=== PATIENT | female | born 1975 | race African-American/Black ===

== ENCOUNTER 2018-11-15 14:09 | Inpatient (IN) ==
[2018-11-15] MEDS ORDERED: TYLENOL PO PRN (15:39)
[2018-11-15] MEDS ORDERED: ZOFRAN IV PRN (15:39)
[2018-11-15] MEDS ORDERED: NS 1,000 ML IV ONE ×2 (15:41→17:08)
[2018-11-15] MEDS ORDERED: VANCOMYCIN IV PER PHARMACY MISC SCH (15:45)
[2018-11-15] MEDS ORDERED: SALINE LOCK IV FLUID XX ONE (15:45)
[2018-11-15] MEDS: ZOSYN 3.375 GM in NS 50 ML IV SCH ×2 (16:38→22:25)
[2018-11-15 16:47] LABS: BASO# 0.03 X1000 (0.0-0.2); BASO% 0.1 % (0.0-0.8); EOS# 0.05 X1000 (0.0-0.7); EOS% 0.2 % (0.0-10.0); HEMATOCRIT 31.5 % (37.0-47.0); HEMOGLOBIN 10.3 g/dL (12.0-16.0); IMM GRAN# 0.18 X1000 (0.0-0.04); IMM GRAN% 0.8 % (0.0-0.5); LYMPH# 2.85 X1000 (1.2-3.4); LYMPH% 13.1 % (20.5-51.1); MCH 29.2 PG (27-31); MCHC 32.7 g/dL (33-37); MCV 89.2 FL (81-99); MONO# 1.75 X1000 (0.11-0.59); MPV 11.2 FL (7.4-10.4); NEUT# 16.91 X1000 (1.4-6.5); NEUT% 77.8 % (42.2-75.2); PLT 44 X1000 (130-400); RBC 3.53 XMIL (4.2-5.4); RDW 12.7 % (11.5-14.5); WBC 21.77 X1000 (4.8-10.8)
[2018-11-15 16:49] LABS: LYMPHS 15 % (21-51); MONO 7 % (1-9); SEGS 78 % (42-75)
[2018-11-15 17:00] LABS: AGAP 18; ALBUMIN 3.8 g/dL (3.5-5.0); ALKALINE PHOSPHATASE 85 U/L (32-104); BUN 10 mg/dL (8-22); CALCIUM 8.7 mg/dL (8.8-10.2); CHLORIDE 97 mmol/L (98-107); COSMO 274; CREATININE 0.6 mg/dL (0.5-0.9); ESTIMATED GFR > 60; GLUCOSE 124 mg/dL (70-104); GOT 7 U/L (10-30); GPT 6 U/L (10-36); POTASSIUM 3.6 mmol/L (3.5-5.1); SODIUM 137 mmol/L (136-145); TCO2 22 mmol/L (25-35)
[2018-11-15] MEDS ORDERED: VENTOLIN HFA INH PRN (17:09)
[2018-11-15] MEDS ORDERED: MIRALAX PO PRN (17:09)
[2018-11-15] MEDS ORDERED: VANCOMYCIN 1,750 MG in NS 250 ML IV ONE (18:00)
--- NOTE | 2018-11-15 19:08 | Diag Imaging Result Doc PS360 ---
EXAM: CT ABD/PELVIS W/PO AND IV CON 11/15/2018 HISTORY: perirectal abscess TECHNIQUE: This exam was performed using automated exposure control, adjustment of mA or kV according to patient size, and/or use of iterative reconstruction technique. COMMENT: There are no previous studies available for comparison. There is cardiomegaly. There is no evidence of acute disease in the visualized portion of the chest otherwise. The liver is slightly hypodense suggesting fatty change. There is a small hiatal hernia. The spleen and adrenal glands are within normal limits. The pancreas is unremarkable. There is some stool in the colon. The small bowel is not distended. The aorta is not distended and there is no evidence of significant adenopathy. There is no evidence of hydronephrosis. There is a cyst in the posterior lateral inferior left renal cortex measuring 15 mm in diameter. There is a fat-containing umbilical hernia. Pelvis: There is a fairly large amount of stool present in the distal descending colon and cecum. The appendix is normal in appearance. The urinary bladder is not distended. There is no evidence of free fluid in the pelvis. There is an apparent nabothian cyst. There is soft tissue edema in the subcutaneous fat to the left of the gluteal fold extending slightly into the left ischial rectal fossa. There is a somewhat poorly defined fluid collection present best seen on image 143 and measuring 3.4 cm in greatest dimension. This may be a perirectal abscess. There is an old fracture of the inferior left pubic ramus and also of the superior pubic ramus. There is vacuum joint phenomenon in the left sacroiliac joint. IMPRESSION: Subcutaneous cellulitis and abscess on the left aspect of the gluteal fold and perirectal region. Other nonacute changes as described above. Electronically signed by Pete Quintanilla 11/15/2018 7:06 PM
[2018-11-15] MEDS: LOPRESSOR PO SCH (20:06)
[2018-11-15] MEDS: TOPAMAX PO SCH (20:06)
[2018-11-15] MEDS: TRILEPTAL PO SCH (20:06)
[2018-11-15] MEDS: PATIENT'S OWN MED PO SCH ×2 (20:14)
--- NOTE | 2018-11-15 20:16 | HISTORY AND PHYSICAL ---
CHIEF COMPLAINT: Gluteal pain, buttock pain. HISTORY OF PRESENT ILLNESS: This is a 43-year-old female. She is a [facility] patient with schizophrenia, moderate intellectual disability, COPD, GERD, hypertension. She was seen I think [facility] a couple days ago for possible developing abscess cellulitis in her gluteal area on the left side. I think they attempted to drain in the office. She was placed on antibiotics, did not improve, came back in today, was re-evaluated by nurse practitioner. She felt the area was worse and interestingly, there is a comment here that the "boils" did not appear until she started her Depo shot which I am assuming is her Depo-Provera shot. In any case she was admitted for cellulitis, possibly developing abscess. She was given Depo-Provera prior to transfer. PAST MEDICAL HISTORY: 1. Again the COPD. 2. Schizophrenia. 3. Moderate intellectual disabilities. 4. GERD. 5. Hypertension. 6. Hypothyroid. 7. Type 2 diabetes noninsulin dependent. PAST SURGICAL HISTORY: She admits to only orthopedic surgery on her hands. No other major surgeries. SOCIAL HISTORY: No tobacco or ethanol. She is a [facility] patient. ALLERGIES: To sulfa. MEDICATIONS: Her medication list is being compiled. Claritin 10 daily, Clozaril 50 b.i.d., 150 at bedtime, 25 at 15:00, Cogentin 0.5 t.i.d., Atrovent dial arrest 500 daily, medroxyprogesterone (the Depo-Provera) q.3 months, ferrous sulfate 325 daily, Lopressor 12.5 b.i.d., magnesium oxide 400 daily, MiraLAX 17 daily, ProAir daily, Synthroid 50 daily, topiramate 25 b.i.d., Trileptal 300 b.i.d., vitamin B12 1000 daily, vitamin D3 2000 daily, dapagliflozin/metformin 5/1 g b.i.d., sertraline 100 daily, doxycycline 100 p.o. b.i.d. REVIEW OF SYSTEMS: Otherwise negative times a 10 point review of systems. PHYSICAL EXAM: VITAL SIGNS: Her temperature is currently 99.9 degrees, heart rate 116, respiratory 18, blood pressure 117/64, 98% on room air. GENERAL: A well-developed female. She is in mild distress. HEAD: Examination was normocephalic, atraumatic. EYES: Pupils are equal, round, reactive to light. Extraocular movements were intact. EAR, NOSE AND THROAT EXAM: She had moist mucous membranes. NECK EXAM: Was supple. CARDIOVASCULAR: Was regular rate and rhythm. PULMONARY: Bilateral breath sounds. Clear to auscultation. GI: Was soft, nontender, nondistended. Bowel sounds are positive. ON HER GLUTEAL EXAM: She had a good 3 to 4 cm sized lesion that was fluctuant kind had a clear vesicular surface, but underneath was fluctuance, I could not appreciate any funmi pus. I could not express pus from any particular area and she had some macerated tissue right beneath the surface of the blister area. NEURO: Was nonfocal. She was able to actually answer most of her questions appropriately. Had some decent insight. PLAN/ASSESSMENT: This is a 43-year-old female, diabetic, intellectually impaired, coming in for evaluation for a possible intergluteal abscess or gluteal abscess and cellulitis. 1. Gluteal abscess cellulitis. We have ordered antibiotics empirically. Blood cultures. I have gone ahead and done a wound culture on her buttocks area, and we will get a CT scan to get a better idea of the extent of it. I do think this will most likely need incision and drainage. Dr. Rush has been consulted to evaluate the patient for incision and drainage. Her white count with suggests that she does have degree of even early sepsis per se because she has high white count and high heart rate. No temperature at this point, but in any case, patient will be admitted for treatment. 2. Diabetes. Continue her regular medications and follow. Follow blood sugars. Check A1c. Check sliding scale insulin and monitor. 3. Hypertension. Continue her regular medications. She does appear a bit clinically dehydrated, so we will continue that as tolerated and follow. DISPOSITION: Continue to monitor closely. Pending her clinical status, we may have to end up transferring her to surgical facility. cc: MD Abi Hopkins
[2018-11-15] MEDS: SYMBICORT 160/4.5 MICROGM INHALER INH SCH (20:23)
[2018-11-15] MEDS: DUONEB (A & A) INH SCH (20:23)
[2018-11-15 21:07] LABS: BILIRUBIN URINE NEGATIVE (NEGATIVE); BLOOD URINE 4+ (NEGATIVE); KETONE URINE 3+(Large) mg/dL (NEGATIVE); LEUKOCYTES URINE 2+ (NEGATIVE); NITRITE URINE NEGATIVE (NEGATIVE); PH URINE 6.5; PROTEIN URINE TRACE mg/dL (NEGATIVE); UROBILINOGEN URINE NORMAL
[2018-11-15 21:08] LABS: CLARITY SL. CLOUDY (CLEAR); COLOR YELLOW
--- NOTE | 2018-11-15 21:25 | GENERAL SURGERY CONSULTATION ---
DATE: 11/15/2018 REASON FOR CONSULTATION: Buttock abscess. HISTORY OF PRESENT ILLNESS: This is a 43-year-old female who has had swelling and pain over her right buttock for about a week. She denies nausea, vomiting, fever, or chills. She lives in a [facility]ci. It is worse to direct pressure. PAST MEDICAL HISTORY: 1. Type 2 diabetes. 2. Hypothyroidism. 3. Gastroesophageal reflux disease. 4. COPD. 5. Schizophrenia. PAST SURGICAL HISTORY: Unknown. CURRENT MEDICATIONS: 1. DuoNeb. 2. Cogentin. 3. Symbicort. 4. Vitamin D. 5. Vitamin B12. 6. Ferrous sulfate. 7. Humulin. 8. Synthroid. 9. Claritin. 10. Lopressor. 11. Vancomycin. 12. Zofran. 13. Trileptal. 14. Klonopin. 15. Zosyn. 16. MiraLax. 17. Daliresp. 18. Zoloft. 19. Topamax. ALLERGIES: Sulfa. SOCIAL HISTORY: No tobacco, alcohol, or illicit drug use. She lives in a fci. REVIEW OF SYSTEMS: 10 systems were reviewed and negative except as noted above. PHYSICAL EXAMINATION: Vital Signs: Temperature 99.9 degrees, pulse 115, blood pressure 111/64. General: Well developed female in no distress. She looks her stated age. CV: Regular rate and rhythm. Respiratory: Bilateral breath sounds. No work of breathing. Skin: There is a fluctuant, tender draining area of the right buttock skin near the gluteal cleft. IMAGING: Abdominal and pelvis CT scan shows perirectal abscess. ASSESSMENT AND PLAN: A 43-year-old female with perirectal abscess. We will perform incision and drainage at the bedside. We are seeking consent from her [facility]. cc: Paxton Rush MD
--- NOTE | 2018-11-15 21:26 | Diag Imaging Result Doc PS360 ---
EXAM: CHEST-1 VIEW 11/15/2018 HISTORY: SEPSIS PROTOCOL TECHNIQUE: AP portable at 2118 COMMENT: There is cardiomegaly. The inspiration is suboptimal. Compared to 04/27/2017 there has been no significant change. IMPRESSION: Stable chest. Electronically signed by Pete Quintanilla 11/15/2018 9:23 PM
[2018-11-15 21:30] LABS: URINE SOURCE CLEAN CATCH
[2018-11-15 21:33] LABS: URINE EPITHELIAL CELLS <10 /HPF (<10); URINE WBC 20-40 /HPF (<10)
[2018-11-15 21:34] LABS: URINE BACTERIA 1+ /HFP; URINE CAST NONE SEEN /LPF; URINE CRYSTAL NONE SEEN /HPF; URINE SMALL ROUND CELLS TRANSITIONAL PRESENT; URINE YEAST NONE SEEN /HPF
[2018-11-15 21:53] LABS: INR 1.06; PROTIME 14.3 Seconds (11.0-16.0)
[2018-11-15 21:54] LABS: PTT 31.4 Seconds (22.3-41.8)
--- NOTE | 2018-11-15 22:05 | OPERATIVE NOTE ---
PROCEDURE DATE: 11/15/2018 PREOPERATIVE DIAGNOSIS: Perirectal abscess. POSTOPERATIVE DIAGNOSIS: Perirectal abscess. PROCEDURE: Incision and drainage of perirectal abscess. SURGEON: Paxton Rush MD ANESTHESIA: Local anesthetic. ESTIMATED BLOOD LOSS: Scant. COMPLICATIONS: None apparent. FINDINGS: Purulent fluid. TECHNIQUE: She was facing her left side on her hospital bed. The skin was prepped with Betadine. An 11 blade was used to incise the fluctuant area of the left perirectal abscess. The hemostat was inserted and used to break up loculations. Purulent fluid was drained and cultured. The wound was packed with iodoform gauze and covered with 4 x 4 gauze and tape. She tolerated this well. There were no apparent complications. cc: Paxton Rush MD
[2018-11-15] MEDS: NS 1,000 ML IV SCH (22:25)
[2018-11-15] MEDS: HUMULIN R (PARKWAY) SUBQ SCH (22:32)
[2018-11-16 02:48] LABS: BASO# 0.03 X1000 (0.0-0.2); BASO% 0.2 % (0.0-0.8); EOS# 0.13 X1000 (0.0-0.7); EOS% 0.7 % (0.0-10.0); HEMATOCRIT 29.2 % (37.0-47.0); HEMOGLOBIN 9.4 g/dL (12.0-16.0); IMM GRAN# 0.14 X1000 (0.0-0.04); IMM GRAN% 0.7 % (0.0-0.5); LYMPH% 15.2 % (20.5-51.1); MCH 28.7 PG (27-31); MCHC 32.2 g/dL (33-37); MONO# 1.13 X1000 (0.11-0.59); MONO% 5.9 % (1.7-9.3); MPV 11.7 FL (7.4-10.4); NEUT# 14.81 X1000 (1.4-6.5); NEUT% 77.3 % (42.2-75.2); PLT 89 X1000 (130-400); RBC 3.28 XMIL (4.2-5.4); RDW 12.6 % (11.5-14.5); WBC 19.14 X1000 (4.8-10.8)
[2018-11-16 03:18] LABS: AGAP 11; BUN 9 mg/dL (8-22); CALCIUM 8.4 mg/dL (8.8-10.2); CHLORIDE 102 mmol/L (98-107); COSMO 281; CREATININE 0.5 mg/dL (0.5-0.9); ESTIMATED GFR > 60; GLUCOSE 178 mg/dL (70-104); POTASSIUM 3.2 mmol/L (3.5-5.1); SODIUM 139 mmol/L (136-145); TCO2 26 mmol/L (25-35)
[2018-11-16] MEDS: DUONEB (A & A) INH SCH ×4 (03:40→20:13)
[2018-11-16] MEDS: ZOSYN 3.375 GM in NS 50 ML IV SCH ×3 (04:03→18:09)
[2018-11-16] MEDS: VANCOMYCIN 1,500 MG in NS 250 ML IV SCH ×2 (05:50→20:19)
[2018-11-16] MEDS: SYNTHROID PO SCH ×2 (05:55→09:45)
[2018-11-16] MEDS: HUMULIN R (PARKWAY) SUBQ SCH ×4 (06:44→20:20)
[2018-11-16] MEDS: SYMBICORT 160/4.5 MICROGM INHALER INH SCH ×2 (08:37→20:13)
[2018-11-16] MEDS: TRILEPTAL PO SCH ×2 (09:43→20:20)
[2018-11-16] MEDS: TOPAMAX PO SCH ×2 (09:43→20:20)
[2018-11-16] MEDS: VITAMIN D PO SCH (09:44)
[2018-11-16] MEDS: COGENTIN PO SCH ×3 (09:44→17:14)
[2018-11-16] MEDS: CLARITIN PO SCH (09:44)
[2018-11-16] MEDS: DALIRESP PO SCH (09:44)
[2018-11-16] MEDS: FERROUS SULFATE PO SCH (09:44)
[2018-11-16] MEDS: VITAMIN B-12 PO SCH (09:44)
[2018-11-16] MEDS: LOPRESSOR PO SCH ×2 (09:44→20:20)
[2018-11-16] MEDS: ZOLOFT PO SCH (09:44)
[2018-11-16] MEDS: NS 1,000 ML IV SCH ×2 (09:45→12:16)
[2018-11-16] MEDS: PATIENT'S OWN MED PO SCH ×5 (09:46→21:20)
[2018-11-16] MEDS ORDERED: KLOR-CON PO ONE (11:54)
--- NOTE | 2018-11-16 15:37 | PROGRESS NOTE ---
DATE: 11/16/2018 SUBJECTIVE: Patient has no major complaints. OBJECTIVE: Vital signs: Blood pressure 124/66, heart rate of 96, respiratory rate of 16, temperature 98.1 degrees, 98% on room air. Cardiovascular: Regular rate and rhythm. Pulmonary: Bilateral breath sounds. Clear to auscultation. GI: Soft, nontender, nondistended. Bowel sounds are positive. LABORATORY DATA: White count is down to 19, hemoglobin and hematocrit 9 and 29, platelets of 89,000. Potassium is 3.2, glucose is 299. PROBLEM LIST: 1. Gluteal abscess status post incision and drainage. We will continue treatment. Dr. Rush did a bedside I D yesterday and I appreciate his input. We will continue to monitor. She is on vancomycin and Zosyn for the time being until we can get cultures back, if we get cultures back. So far everything is negative. Hopefully just with wound care and antibiotics it will take care of this problem. 2. Type 2 diabetes. Aware of diagnosis. We will continue to monitor. Her sugars have been under good control or fairly good control. She is on dapagliflozin and metformin. 3. Hypertension. That appears to be stable. Continue to follow. 4. Hypothyroidism. Check her TSH and monitor. 5. Thrombocytopenia. I did not appreciate this yesterday because I did not have all of her labs when initially she was seen, but she does have a fairly significant thrombocytopenia. It is better today. She is on several psychiatric medications, some of which certainly could contribute to that, so we will keep an eye on that. May need to get a Hematology opinion and follow. cc: Molina Uribe MD
[2018-11-17] MEDS: ZOSYN 3.375 GM in NS 50 ML IV SCH ×5 (01:39→18:48)
[2018-11-17] MEDS: DUONEB (A & A) INH SCH ×4 (03:01→20:23)
[2018-11-17] MEDS: SYNTHROID PO SCH ×2 (05:54→06:15)
[2018-11-17] MEDS: HUMULIN R (PARKWAY) SUBQ SCH ×4 (06:26→21:56)
[2018-11-17 06:46] LABS: AGAP 9; BUN 8 mg/dL (8-22); CALCIUM 8.1 mg/dL (8.8-10.2); CHLORIDE 105 mmol/L (98-107); COSMO 284; CREATININE 0.5 mg/dL (0.5-0.9); ESTIMATED GFR > 60; GLUCOSE 272 mg/dL (70-104); POTASSIUM 4.1 mmol/L (3.5-5.1); SODIUM 138 mmol/L (136-145); TCO2 24 mmol/L (25-35)
[2018-11-17 07:03] LABS: HEMATOCRIT 29.8 % (37.0-47.0); HEMOGLOBIN 9.4 g/dL (12.0-16.0); MCH 28.4 PG (27-31); MCHC 32.3 g/dL (33-37); MCV 90.2 FL (81-99); PLT 87 X1000 (130-400); RBC 3.31 XMIL (4.2-5.4); RDW 12.8 % (11.5-14.5); WBC 10.54 X1000 (4.8-10.8)
[2018-11-17 07:06] LABS: LYMPH% 20.9 % (20.5-51.1); MONO% 6.5 % (1.7-9.3); MPV 11.4 FL (7.4-10.4); NEUT% 68.3 % (42.2-75.2)
[2018-11-17 07:07] LABS: BASO% 0.3 % (0.0-0.8); LYMPH# 2.19 X1000 (1.2-3.4); MONO# 0.68 X1000 (0.11-0.59); NEUT# 7.16 X1000 (1.4-6.5)
[2018-11-17 07:08] LABS: BASO# 0.03 X1000 (0.0-0.2); EOS# 0.21 X1000 (0.0-0.7); IMM GRAN# 0.21 X1000 (0.0-0.04)
[2018-11-17] MEDS: VANCOMYCIN 1,500 MG in NS 250 ML IV SCH (08:14)
[2018-11-17] MEDS: ZOLOFT PO SCH (08:15)
[2018-11-17] MEDS: VITAMIN B-12 PO SCH (08:15)
[2018-11-17] MEDS: COGENTIN PO SCH ×3 (08:15→16:57)
[2018-11-17] MEDS: TOPAMAX PO SCH ×2 (08:15→21:55)
[2018-11-17] MEDS: FERROUS SULFATE PO SCH (08:16)
[2018-11-17] MEDS: DALIRESP PO SCH (08:16)
[2018-11-17] MEDS: TRILEPTAL PO SCH ×2 (08:16→21:55)
[2018-11-17] MEDS: LOPRESSOR PO SCH ×2 (08:16→21:55)
[2018-11-17] MEDS: CLARITIN PO SCH (08:16)
[2018-11-17] MEDS: VITAMIN D PO SCH (08:16)
[2018-11-17] MEDS: PATIENT'S OWN MED PO SCH ×4 (08:44→21:56)
[2018-11-17] MEDS: SYMBICORT 160/4.5 MICROGM INHALER INH SCH ×2 (10:21→20:22)
--- NOTE | 2018-11-17 19:57 | PROGRESS NOTE ---
DATE: 11/17/2018 SUBJECTIVE: Patient has no major complaints. OBJECTIVE: Blood pressure 108/54, heart rate 68, respiratory rate 18, temperature 98.2, 97% on room air.Cardiovascular: Regular rate and rhythm. Pulmonary: Clear to auscultation. Gastrointestinal: Soft, nontender, nondistended. Bowel sounds are positive. Extremity: No clubbing or cyanosis. No peripheral edema. Neurological: Nonfocal. LABORATORY: White count is 10, hemoglobin and hematocrit 9 and 29, platelets 87,000. Sugar 296, which is still not very good control. PROBLEM LIST: 1. Gluteal abscess growing out Enterococcus preliminarily and a gram-negative jf. Dr. Rush did I D. We will continue wound care. Apparently, we are doing packing. Discharge and follow. 2. Type 2 diabetes. She is on several medications, but she is not under control. I am going to have to adjust her medicines a bit. She may even benefit from insulin. 3. Hypertension is stable currently. 4. Thrombocytopenia is currently active. I would encourage followup with her psychiatrist about adjusting her medications, but her platelet count has stabilized. There is no gross evidence of bleeding. DISPOSITION: I anticipate discharge hopefully tomorrow. Will transition to oral antibiotics once we can get finalized cultures. I have ordered Zyvox because she has Enterococcus and Levaquin currently for the gram-negative. cc: Molina Uribe MD
[2018-11-17] MEDS: VANCOMYCIN 1,200 MG in NS 250 ML IV SCH (21:54)
[2018-11-18] MEDS: ZOSYN 3.375 GM in NS 50 ML IV SCH ×2 (00:15→06:08)
[2018-11-18] MEDS: DUONEB (A & A) INH SCH ×2 (03:13→08:13)
[2018-11-18] MEDS: SYNTHROID PO SCH (06:08)
[2018-11-18] MEDS: HUMULIN R (PARKWAY) SUBQ SCH ×2 (06:09→12:42)
[2018-11-18 07:20] LABS: AGAP 8; BUN 10 mg/dL (8-22); CALCIUM 8.4 mg/dL (8.8-10.2); CHLORIDE 105 mmol/L (98-107); COSMO 287; CREATININE 0.5 mg/dL (0.5-0.9); ESTIMATED GFR > 60; GLUCOSE 321 mg/dL (70-104); POTASSIUM 4.3 mmol/L (3.5-5.1); SODIUM 138 mmol/L (136-145); TCO2 25 mmol/L (25-35)
[2018-11-18 07:29] VITALS: BP 116/60
[2018-11-18] MEDS: SYMBICORT 160/4.5 MICROGM INHALER INH SCH (08:13)
[2018-11-18 08:27] LABS: BASO# 0.04 X1000 (0.0-0.2); BASO% 0.5 % (0.0-0.8); EOS# 0.24 X1000 (0.0-0.7); EOS% 2.7 % (0.0-10.0); HEMATOCRIT 34.5 % (37.0-47.0); HEMOGLOBIN 10.6 g/dL (12.0-16.0); IMM GRAN# 0.18 X1000 (0.0-0.04); LYMPH# 2.56 X1000 (1.2-3.4); LYMPH% 28.8 % (20.5-51.1); MCH 27.9 PG (27-31); MCHC 30.7 g/dL (33-37); MCV 90.8 FL (81-99); MONO# 0.47 X1000 (0.11-0.59); MONO% 5.3 % (1.7-9.3); NEUT# 5.39 X1000 (1.4-6.5); NEUT% 60.7 % (42.2-75.2); PLT 82 X1000 (130-400); RDW 13.1 % (11.5-14.5); WBC 8.88 X1000 (4.8-10.8)
[2018-11-18] MEDS: CLARITIN PO SCH (10:02)
[2018-11-18] MEDS: DALIRESP PO SCH (10:02)
[2018-11-18] MEDS: TRILEPTAL PO SCH (10:03)
[2018-11-18] MEDS: FERROUS SULFATE PO SCH (10:03)
[2018-11-18] MEDS: COGENTIN PO SCH ×2 (10:03→12:59)
[2018-11-18] MEDS: TOPAMAX PO SCH (10:03)
[2018-11-18] MEDS: ZOLOFT PO SCH (10:03)
[2018-11-18] MEDS: VITAMIN D PO SCH (10:03)
[2018-11-18] MEDS: LOPRESSOR PO SCH (10:04)
[2018-11-18] MEDS: PATIENT'S OWN MED PO SCH (10:04)
[2018-11-18] MEDS: VITAMIN B-12 PO SCH (10:05)
[2018-11-18] MEDS: VANCOMYCIN 1,200 MG in NS 250 ML IV SCH (10:10)
[2018-11-18] MEDS ORDERED: JANUVIA PO SCH (12:15)
[2018-11-18] MEDS ORDERED: LEVAQUIN PO SCH (12:30)
[2018-11-18] MEDS ORDERED: AMPICILLIN 2 GM/NS 2 GM/100 ML IVPB IV SCH (13:00)
--- NOTE | 2018-11-18 21:01 | PROGRESS NOTE ---
DATE: 11/18/2018 This is a 43-year-old female with a gluteal abscess. SUBJECTIVE: She has no complaints. OBJECTIVE: Blood pressure 116/60, heart rate 83, respiratory 18, temperature 97.9 degrees, 94% on room air.Cardiovascular: Regular rate and rhythm. Pulmonary: Bilateral breath sounds clear to auscultation. GI: Was soft, nontender, nondistended. Bowel sounds are positive. White count 8, which was 21 on admission, hemoglobin and hematocrit 10 and 34, platelets of 82,000, sugar unfortunately up to 321 intermittently, overall though she has improved. PROBLEM LIST: 1. Gluteal abscess. She has grown out Enterococcus and Escherichia coli. Enterococcus is actually not resistant at all, fortunately. E. coli kind of partially resistant, mostly to penicillin type antibiotics and it is intermediately sensitive to Zosyn, although sensitive to cefazolin and Levaquin. In any case, one agent will not be able to cover both unfortunately, so I am going to give her Levaquin and I have ordered Zyvox because I was not sure if this is going to be a VRE that should be sufficient versus Levaquin and ampicillin. In the hospital, I am just going to give her ampicillin and Levaquin, and we will see how she does. 2. Type 2 diabetes, still not very well controlled. She is maxed out on her Xigduo, which is a SGLT2 inhibitor, dapagliflozin and metformin. I am going to add Januvia which works a little different than either of the other 2 medicines and we will see how that does. 3. Asthma, stable currently. 4. Schizophrenia, intellectual impairment. Again, she is doing okay. Apparently, she did call 911 yesterday because she was concerned the nurses were trying to hurt her, but she denies any issues today. She seems stable from that standpoint. I anticipated discharge today but the [facility] to [facility] her [facility]. I discussed wound care with Dr. Rush. He says that it should be packed daily until he follows up in the office on Tuesday or Tuesday, so we will try to work on that. cc: MD Elmira Hopkins CRNP Michelle Sloan Graham
--- NOTE | 2018-11-19 11:47 | DISCHARGE SUMMARY ---
ADMISSION DATE: 11/15/2018 DISCHARGE DATE: 11/18/2018 PRIMARY CARE PHYSICIAN: Dr. Gurpreet Zaman. ADMISSION DIAGNOSES: 1. Perirectal abscess. 2. Diabetes. 3. Hypertension. DISCHARGE DIAGNOSES: 1. Perirectal abscess. 2. Gluteal abscess. 3. Cellulitis. 4. Diabetes. 5. Hypertension. 6. Thrombocytopenia. HISTORY OF PRESENT ILLNESS: This is a 43-year-old female who resides in a residential and has a history of schizophrenia, moderate intellectual disability, COPD, GERD, and hypertension. She was seen and admitted to [place] for a gluteal abscess cellulitis. Surgery was consulted and Dr. Rush I and D's the perirectal abscess and treated with a course of vancomycin and Zosyn. The patient will be discharged on oral antibiotics with a followup with Dr. Rush. The patient's diabetes was managed with sliding scale protocol, and will be discharged with Januvia for blood sugar control. The patient's hypertension is stabilized, and will resume home medications. The patient has thrombocytopenia, and will follow up with her psychiatrist in regards to adjustment of her psychiatric medications. DISCHARGE IMAGING AND LABORATORY DATA: WBC is 8.8, with a hemoglobin and hematocrit of 10.6 and 35.4, platelets are 82. PT 14.3, INR of 1.06, with a PTT of 31.4. Sodium 138, potassium 4.3, BUN of 10, and creatinine 0.5. AST is 7, ALT is 6. Urine was negative for nitrates. Chest x-ray showed a stable chest during admission. Wound culture showed Escherichia coli, and was negative for Staph. DISCHARGE MEDICATIONS: Include Ventolin inhaler 1 puff every 4 to 6 hours as needed, Penatropin 0.5 mg p.o. t.i.d., Symbicort inhaler 2 puffs b.i.d., vitamin D3 at 1000 unit capsules 2 tablets p.o. daily, 1.5 tablets p.o. at bedtime, quetiapine 25 mg p.o. at 1700, quetiapine 100 mg tablet 0.5 tablet p.o. daily, B12 at 1000 mg p.o. daily, ferrous sulfate 325 mg p.o. daily, Combivent Respimat inhaler 2 puffs 4 times daily, levothyroxine 50 mcg p.o. daily, loratadine 10 mg p.o. daily, metoprolol 25 mg tablet 0.5 tablet p.o. b.i.d., Trileptal 300 mg p.o. b.i.d., MiraLAX p.o. daily 17 grams, Daliresp 500 mcg p.o. daily, Zoloft 100 mg p.o. daily, topiramate 25 mg p.o. b.i.d., 1000 mg of acetaminophen p.o. every 6 hours p.r.n. for headache, pain, or fever, albuterol 1 puff inhaler every 4 to 6 hours p.r.n., amoxicillin 500 mg p.o. t.i.d., Xigduo XR 5 mg 1000 mg tablet 1 p.o. b.i.d., fluticasone 2 sprays to nares daily, levofloxacin 500 mg p.o. daily, magnesium oxide 400 mg p.o. daily, Depo-Provera 150 mg IM as directed, mupirocin 1 application topical b.i.d., Januvia 100 mg p.o. daily. ACTIVITY: As tolerated by the patient. DIET: Diabetic diet. DISPOSITION: Will be discharged to residential. FOLLOWUP: Follow up with PCP in 1 to 2 weeks. Follow up with Dr. Rush on Tuesday as requested per Dr. Rush. All discharge instructions were reviewed with the patient and residential caregiver, who verbalized understanding. TIME SPENT: A 35-minute discharge. Dictated by LUIS ANTONIO Gordon for Molina Uribe MD cc: MD Paxton Hopkins MD Stephen Harbin MTDD
== END 2018-11-18 14:29 | disposition home or self-care (01) | DRG 854 ==
LOC: P.DIRADM 14:09 → P.MEDSURG 14:45
PROVIDERS: ATTEND Internal Medicine
CPT/HCPCS: 71010; 71045; 74177; 80048; 80053; 80202; 81001; 82550; 82948; 83605; 83735; 84484; 85025; 85610; 85730; 87040; 87070; 87077; 87088; 87186; 94640; 94761; A9270; J1815; J2543; J3370; J7030; J7050; Q9967; XXXXX